=== PATIENT | female | born 1965 ===

== ENCOUNTER 2017-06-18 21:41 | Emergency (ER) | payer SELFPAY ==
[2017-06-18] MEDS ORDERED: Cephalexin CAP* 500 MG PO ONE (22:43)
--- NOTE | 2017-06-21 13:01 | UC ---
Skin Complaint HPI - HPI Summary HPI Summary: 51 y/o female presents to the urgent care accompany by her son c/o of insect bite on her chest that looks infected for the past 2 days. Pt doesn't speak [place]ian, her son translates. He states the rash is painful and is draining some pus. Pt has not taking anything to alleviate symptoms. Pt denies fever, SOB, chest pain, N/V/D. - History of Current Complaint Chief Complaint: UCSkin Time Seen by Provider: 06/18/17 22:30 Stated Complaint: INFECTED BUG BITE? Hx Obtained From: Patient, Family/Alcohol Law Enforcement Agent - son Onset/Duration: Gradual Onset, Lasting Days, Still Present Skin Exposure Onset/Duration: Days Ago Timing: Constant Onset Severity: Mild Current Severity: Moderate Pain Intensity: 4 Pain Scale Used: 0-10 Numeric Location: Discrete - mid upper chest with infected rash Character: Swelling, Pain, Redness Aggravating: Touch Alleviating: Nothing Associated Signs & Symptoms: Positive: Negative, Rash, Tenderness. Negative: Nausea, Vomiting, Fever, Red Streaks, Joint Swelling Related History: Possible Reaction to: Insect - Allergy/Home Medications Allergies/Adverse Reactions: Allergies Allergy/AdvReac Type Severity Reaction Status Date / Time Cortisone Allergy Hives Verified 06/18/17 21:55 Home Medications: Home Medications Aspirin [Aspirin 81 MG TAB] 81 mg PO DAILY 06/18/17 [History Confirmed 06/18/17] Pantoprazole TAB (NF) [Protonix TAB (NF)] 20 mg PO DAILY 06/18/17 [History Confirmed 06/18/17] Pyridostigmine TAB* [Mestinon TAB*] 60 mg PO TID 06/18/17 [History Confirmed ] Ranitidine TAB (NF) [Zantac TAB (NF)] 150 mg PO DAILY 06/18/17 [History Confirmed 06/18/17] Review of Systems Constitutional: Negative Skin: Rash - at the mid upper chest ENT: Negative Respiratory: Negative Cardiovascular: Negative Gastrointestinal: Negative Genitourinary: Negative Motor: Negative Neurovascular: Negative Musculoskeletal: Negative Neurological: Negative Psychological: Negative All Other Systems Reviewed And Are Negative: Yes PMH/Surg Hx/FS Hx/Imm Hx Previously Healthy: Yes Other Endocrine History: Miasthenia Gravis, RZ - Surgical History Surgical History: None - Family History Known Family History: Positive: Cardiac Disease - Social History Occupation: Unemployed Lives: With Family Alcohol Use: None Substance Use Type: None Smoking Status (MU): Never Smoked Tobacco Physical Exam Triage Information Reviewed: Yes Appearance: Well-Appearing, No Pain Distress, Well-Nourished, Obese Vital Signs: Initial Vital Signs Temp 97.7 F 06/18/17 21:46 Pulse 82 06/18/17 21:46 Resp 18 06/18/17 21:46 BP 156/95 06/18/17 21:46 Pulse Ox 100 06/18/17 21:46 Vital Signs Reviewed: Yes Eye Exam: Normal Eyes: Positive: Conjunctiva Clear - PERRLA, EOMI, fundi grossly normal ENT Exam: Normal ENT: Positive: Normal ENT inspection, Hearing grossly normal, Pharynx normal, TMs normal Dental Exam: Normal Neck exam: Normal Neck: Positive: Supple, Nontender, No Lymphadenopathy Respiratory Exam: Normal Respiratory: Positive: Chest non-tender, Lungs clear, Normal breath sounds Cardiovascular Exam: Normal Cardiovascular: Positive: RRR, No Murmur, Pulses Normal, Brisk Capillary Refill Abdominal Exam: Normal Abdomen Description: Positive: Nontender, No Organomegaly, Soft. Negative: CVA Tenderness (R), CVA Tenderness (L) Bowel Sounds: Positive: Present Musculoskeletal Exam: Normal Musculoskeletal: Positive: Strength Intact, ROM Intact, No Edema Neurological Exam: Normal Psychological Exam: Normal Skin: Positive: rashes - Mid upper chest with erythematous eruptio, w/ mild purulent drainage from the insect bite, tender on palaption about 2cm x 2cm in size. Course/Dx - Course Course Of Treatment: 51 y/o female presents to the urgent care accompany by her son c/o of insect bite on her chest that looks infected for the past 2 days. Hx obtained. Insect bite w/ cellulitis. Pt Rx Keflex and topical bacitracin. Pt advised to take full course of ABX. If redness and swelling increases to return to the urgent care for further evaluation and treatment. - Differential Diagnoses - Skin Complaint Differential Diagnoses: Abscess, Cellulitis, Tick Born Illness, Tinea, Urticaria , Other - insect bite - Diagnoses Provider Diagnoses: 1- Cellulitis s/p insect bite. 2- Elevated blood pressure w /o Hx of HTN Discharge - Discharge Plan Condition: Stable Disposition: HOME Prescriptions: Cephalexin CAP* [Keflex CAP*] 500 mg PO TID #21 cap Patient Education Materials: Insect Bite or Sting (ED), Low Sodium Diet (ED) Referrals: [facility] [Outside] Additional Instructions: Please take full course of antibiotic as directed to avoid recurrence or resistance. Please take ibuprofen after meals to alleviate pain and swelling. If symptoms do not improve or worsen please return to the urgent care or f/u with your PCP for further evaluation and treatment. If you develop an allergic reaction to the antibiotic please go immediately to the ER.
== END 2017-06-18 22:58 | disposition home or self-care (01) ==
LOC: UCEAST 21:41
DX: S20.369A Insect bite (nonvenomous) of unspecified front wall of thorax, initial encounter (principal); L03.313 Cellulitis of chest wall; W57.XXXA Bitten or stung by nonvenomous insect and other nonvenomous arthropods, initial encounter; Y93.9 Activity, unspecified; Y92.9 Unspecified place or not applicable; R03.0 Elevated blood-pressure reading, without diagnosis of hypertension; E66.9 Obesity, unspecified; Z79.82 Long term (current) use of aspirin
CPT/HCPCS: 99202; A9270-GY; G0463